=== PATIENT | male | born 1960 | race African-American/Black ===

== ENCOUNTER 2016-09-02 09:22 | Emergency (ER) | payer MEDICAID ==
[~2016-09-02] VITALS: Ht 170.2 cm; Wt 110.0 kg
[~2016-09-02 09:22] MED LIST: GABA-531 PO; HYDR-519 PO
[2016-09-02] MEDS ORDERED: SODIUM CHLORIDE 0.9% 1,000 ML IV ONE (09:56)
[2016-09-02] MEDS ORDERED: MORPHINE SULFATE 4 MG/ML CPJ (NOT FOR IM USE) IV ONE (10:15)
[2016-09-02] MEDS ORDERED: ONDANSETRON HCL 4MG/2ML VIAL IV ONE (10:15)
[2016-09-02 10:28] LABS: BASOPHILS % 0.6 % (0.0-2.0); EOSINOPHILS % 5.5 % (0.0-5.0); HEMATOCRIT. 41.7 % (42.0-52.0); HEMOGLOBIN. 13.7 g/dL (14.0-18.0); MEAN CORPUSCULAR HEMOGLOBIN 27.6 pg (28.0-32.0); MEAN CORPUSCULAR VOLUME 83.6 fL (80.0-94.0); MEAN PLATELET VOLUME 9.2 fl (7.4-10.4); NEUTROPHILS % 57.9 % (40.0-76.0); PLATELET 232 x1000/uL (130-400); RED BLOOD CELL COUNT 4.98 mill/uL (4.7-6.1)
[2016-09-02 10:35] LABS: PROTHROMBIN TIME 10.4 sec
[2016-09-02 10:42] LABS: ALANINE AMINOTRANSFERASE 55 IU/L (13-61); ALBUMIN 3.9 g/dL (3.4-5.0); ANION GAP 11; CALCIUM 8.2 mg/dL (8.5-10.1); CARBON DIOXIDE 26 mEq/L (21-32); CHLORIDE 109 mEq/L (98-107); INDEX HEMOLYSI 1 (1-3); INDEX ICTERIC 1 (1-4); INDEX LIPEMIC 1 (1-3); UREA NITROGEN BLOOD 12 mg/dL (7-21); eGFR > 60 mL/min (>60)
[2016-09-02 11:45] LABS: CLARITY URINE CLEAR (CLEAR); COLOR URINE YELLOW (YELLOW); GLUCOSE URINE NEGATIVE (NEGATIVE); KETONES URINE TRACE (NEGATIVE); LEUKOCYTE ESTERASE URINE NEGATIVE (NEGATIVE); NITRITE URINE NEGATIVE (NEGATIVE); OCCULT BLOOD URINE NEGATIVE (NEGATIVE); PROTEIN URINE NEGATIVE (NEGATIVE)
[2016-09-02 13:25] VITALS: BP 162/80
== END 2016-09-02 13:30 | disposition home or self-care (01) ==
LOC: ER 10:23
DX: L73.2 Hidradenitis suppurativa (principal); M54.12 Radiculopathy, cervical region; M48.02 Spinal stenosis, cervical region; M19.90 Unspecified osteoarthritis, unspecified site; M50.33 Other cervical disc degeneration, cervicothoracic region; F17.200 Nicotine dependence, unspecified, uncomplicated; G89.4 Chronic pain syndrome; R79.1 Abnormal coagulation profile
CPT/HCPCS: 36415; 72141; 80053; 81003; 85025; 85610; 93005; 96361; 96374; 96375; 99285; J2270; J2405; J7030; Z7610

== ENCOUNTER 2017-02-03 13:47 | Emergency (ER) | payer MEDICAID ==
[~2017-02-03] VITALS: Ht 170.2 cm; Wt 116.0 kg
[2017-02-03] MEDS ORDERED: CYCLOBENZAPRINE 10MG TABLET PO ONE (14:45)
[2017-02-03] MEDS ORDERED: MORPHINE SULFATE 10 MG/ML CPJ IM ONE (14:45)
[2017-02-03 17:35] VITALS: BP 139/68
== END 2017-02-03 17:54 | disposition home or self-care (01) ==
LOC: ER 13:47
DX: M54.12 Radiculopathy, cervical region (principal); J40 Bronchitis, not specified as acute or chronic; F17.200 Nicotine dependence, unspecified, uncomplicated
CPT/HCPCS: 96372; 99283; J2270

== ENCOUNTER 2017-02-11 11:53 | Emergency (ER) | payer MEDICAID ==
[~2017-02-11] VITALS: Ht 170.2 cm; Wt 118.0 kg
[2017-02-11] MEDS ORDERED: KETOROLAC 60MG/2ML VIAL IM ONE (15:15)
[2017-02-11 15:57] LABS: BASOPHILS % 0.7 % (0.0-2.0); EOSINOPHILS % 1.5 % (0.0-5.0); HEMATOCRIT. 41.7 % (42.0-52.0); HEMOGLOBIN. 13.7 g/dL (14.0-18.0); LYMPHOCYTES % 19.4 % (20.0-50.0); MEAN CORPUSCULAR HEMOGLOBIN 27.4 pg (28.0-32.0); MEAN CORPUSCULAR VOLUME 83.6 fL (80.0-94.0); MEAN PLATELET VOLUME 9.7 fl (7.4-10.4); MONOCYTES % 8.5 % (2.0-8.0); NEUTROPHILS % 69.9 % (40.0-76.0); PLATELET 241 x1000/uL (130-400); RED BLOOD CELL COUNT 4.99 mill/uL (4.7-6.1); RED CELL DISTRIBUTION WIDTH 14.1 % (11.6-14.6)
[2017-02-11 16:00] LABS: PROTHROMBIN TIME 10.7 sec (9.4-11.6)
[2017-02-11 16:04] LABS: CARBON DIOXIDE 24 mEq/L (21-32); CHLORIDE 108 mEq/L (98-107)
[2017-02-11] MEDS ORDERED: SODIUM CHLORIDE 0.9% 1,000 ML IV ONE (16:40)
[2017-02-11 17:24] LABS: CLARITY URINE CLEAR (CLEAR); COLOR URINE YELLOW (YELLOW); GLUCOSE URINE NEGATIVE (NEGATIVE); KETONES URINE TRACE (NEGATIVE); LEUKOCYTE ESTERASE URINE NEGATIVE (NEGATIVE); NITRITE URINE NEGATIVE (NEGATIVE); OCCULT BLOOD URINE NEGATIVE (NEGATIVE); PH URINE 5.5 (4.5-8.0); PROTEIN URINE NEGATIVE (NEGATIVE); SPECIFIC GRAVITY URINE 1.021 (1.005-1.030); UROBILINOGEN URINE 0.2 E.U./dL (0.2-1.0)
[2017-02-11 17:36] LABS: *AMPHETAMINES SCREEN URINE NEGATIVE (NEGATIVE); *BARBITURATES SCREEN URINE NEGATIVE (NEGATIVE); *BENZODIAZEPINES SCREEN URINE NEGATIVE (NEGATIVE); *COCAINE SCREEN URINE NEGATIVE (NEGATIVE); CANNABINOID URINE SCREEN NEGATIVE (NEGATIVE); METHADONE URINE SCREEN NEGATIVE (NEGATIVE); OPIATES URINE SCREEN PRESUMTIVE POSITIVE (NEGATIVE); PHENCYCLIDINE URINE SCREEN NEGATIVE (NEGATIVE)
[2017-02-11 19:03] VITALS: BP 118/86
== END 2017-02-11 19:05 | disposition home or self-care (01) ==
LOC: ER 14:14
DX: K04.7 Periapical abscess without sinus (principal); R51 Headache; F17.200 Nicotine dependence, unspecified, uncomplicated
CPT/HCPCS: 36415; 71010; 80053; 80305; 81003; 83690; 85025; 85610; 93005; 96360; 99285; J7030; Z7610

== ENCOUNTER 2017-04-22 09:43 | Emergency (ER) | payer MEDICAID ==
[~2017-04-22] VITALS: Ht 170.2 cm; Wt 118.0 kg
[2017-04-22] MEDS ORDERED: IBUP-2030 PO (10:13)
[2017-04-22] MEDS ORDERED: CARI350T PO (10:13)
[2017-04-22] MEDS ORDERED: KETOROLAC 30MG/ML VIAL IV STA (10:32)
[2017-04-22] MEDS ORDERED: SODIUM CHLORIDE 0.9% 1,000 ML IV ONE (10:32)
[2017-04-22 10:55] LABS: INR 1.1
[2017-04-22 10:56] LABS: BASOPHILS % 0.4 % (0.0-2.0); EOSINOPHILS % 3.2 % (0.0-5.0); HEMOGLOBIN. 13.9 g/dL (14.0-18.0); LYMPHOCYTES % 17.5 % (20.0-50.0); MEAN CORPUSCULAR HEMOGLOBIN 28.1 pg (28.0-32.0); MEAN CORPUSCULAR VOLUME 83.1 fL (80.0-94.0); MONOCYTES % 6.4 % (2.0-8.0); NEUTROPHILS % 72.5 % (40.0-76.0); PLATELET 247 x1000/uL (130-400); RED BLOOD CELL COUNT 4.93 mill/uL (4.7-6.1); RED CELL DISTRIBUTION WIDTH 14.4 % (11.6-14.6)
[2017-04-22 11:03] LABS: CARBON DIOXIDE 27 mEq/L (21-32); CHLORIDE 111 mEq/L (98-107)
[2017-04-22] MEDS ORDERED: IOHEXOL-300 100 ML BOTTLE ONE (12:11)
[2017-04-22] MEDS ORDERED: MORPHINE SULFATE 4 MG/ML CPJ (NOT FOR IM USE) IV ONE (13:45)
[2017-04-22 13:47] VITALS: BP 140/91
== END 2017-04-22 13:49 | disposition home or self-care (01) ==
LOC: ER 10:53
DX: M54.2 Cervicalgia (principal); R13.0 Aphagia; D49.89 Neoplasm of unspecified behavior of other specified sites
CPT/HCPCS: 36415; 70491; 80053; 85025; 85610; 93005; 96361; 96374; 99285; J1885; J7030; Q9967; Z7610

== ENCOUNTER 2017-08-13 13:16 | Emergency (ER) | payer MEDICAID ==
[~2017-08-13] VITALS: Ht 167.6 cm; Wt 115.0 kg
[~2017-08-13 13:16] MED LIST changes: +CARI350T PO; +IBUP-2030 PO
[2017-08-13] MEDS ORDERED: ALBUTEROL (0.083%) 2.5MG/3ML NEB HHN STA (14:56)
[2017-08-13] MEDS ORDERED: IPRATROPIUM BROMIDE (0.02%) 0.5MG/2.5ML NEB HHN STA (14:56)
[2017-08-13 18:15] VITALS: BP 122/76
== END 2017-08-13 18:17 | disposition home or self-care (01) ==
LOC: ER 14:04
DX: J06.9 Acute upper respiratory infection, unspecified (principal); F17.200 Nicotine dependence, unspecified, uncomplicated
CPT/HCPCS: 71045; 87804; 94640; 99285; J7611

== ENCOUNTER 2018-09-07 23:36 | Emergency (ER) | payer MEDICAID ==
[~2018-09-07] VITALS: Ht 170.2 cm; Wt 133.0 kg
[~2018-09-07 23:36] MED LIST changes: -CARI350T PO; +S350 PO
[2018-09-08] MEDS ORDERED: MAGNESIUM/ALUMINUM HYDROXIDE/SIMETHICONE 30ML UDC PO STA (06:16)
[2018-09-08] MEDS ORDERED: KETOROLAC 60MG/2ML VIAL IM ONE (06:30)
[2018-09-08 06:40] VITALS: BP 120/73
== END 2018-09-08 07:49 | disposition home or self-care (01) ==
LOC: ER 23:36
DX: R10.13 Epigastric pain (principal); S16.1XXA Strain of muscle, fascia and tendon at neck level, initial encounter; F17.200 Nicotine dependence, unspecified, uncomplicated; X50.1XXA Overexertion from prolonged static or awkward postures, initial encounter; Y93.84 Activity, sleeping; Y92.9 Unspecified place or not applicable
CPT/HCPCS: 93005; 96372; 99283; J1885

== ENCOUNTER 2018-11-23 08:24 | Emergency (ER) | payer MEDICAID ==
[~2018-11-23] VITALS: Ht 162.6 cm; Wt 111.0 kg
[2018-11-23 08:34] VITALS: BP 160/96
== END 2018-11-23 09:28 | disposition home or self-care (01) ==
LOC: ER 08:24
DX: J01.90 Acute sinusitis, unspecified (principal); H92.03 Otalgia, bilateral; F17.290 Nicotine dependence, other tobacco product, uncomplicated; Z79.899 Other long term (current) drug therapy
CPT/HCPCS: 99283